=== PATIENT | male | born 1975 | race Caucasian/White ===

== ENCOUNTER → 2023-08-22 14:53 | Outpatient (REF) | payer BC, SELFPAY | LOC: HWEVLT 14:53 | PROVIDERS: ATTENDING PHYSICIAN Radiology Vascular & Interventional Radiology | DX: I83.893 Varicose veins of bilateral lower extremities with other complications (principal) | CPT/HCPCS: 93971 ==

== ENCOUNTER → 2023-10-02 14:33 | Outpatient (REF) | payer BC, SELFPAY | LOC: HWEVLT 14:33 | PROVIDERS: ATTENDING PHYSICIAN Radiology Diagnostic Radiology | DX: I83.892 Varicose veins of left lower extremity with other complications (principal) | CPT/HCPCS: 36478; C1769 ==

== ENCOUNTER → 2023-10-23 13:53 | Outpatient (REF) | payer BC, SELFPAY | LOC: HWEVLT 13:53 | PROVIDERS: ATTENDING PHYSICIAN Radiology Vascular & Interventional Radiology | DX: I83.892 Varicose veins of left lower extremity with other complications (principal) | CPT/HCPCS: 93971 ==

== ENCOUNTER → 2023-10-24 11:07 | Outpatient (REF) | payer BC, SELFPAY ==
--- NOTE | 2023-10-24 11:42 | W.PN.UPDATE ---
Update Note
Progress Note Update
Mr Mason came to day for evaluation of nonhealing access site in the left lower leg. He underwent left GSV ablation on 10/02/23. He states the access site has been oozing some serosanguinous fluid. He has no fever or chills
On exam there is a superficial are of skin desquamation and slow healing wound. There appears to be a varicose vein in the vicinity. There is no drainage noted at this time
A/P Recommend local wound care with triple antibiotic ointment and bandage for 7-10 days. If no improvement, we can perform local foam sclerotherapy to the varicose vein in that area
== END ==
LOC: RADI 11:07
PROVIDERS: ATTENDING PHYSICIAN Radiology Diagnostic Radiology; FAMILY PHYSICIAN Family Medicine
DX: I83.892 Varicose veins of left lower extremity with other complications (principal)

== ENCOUNTER → 2024-12-10 10:04 | Outpatient (REF) | payer SELFPAY | LOC: HWRAD 10:04 | PROVIDERS: ATTENDING PHYSICIAN Family Medicine | DX: E78.00 Pure hypercholesterolemia, unspecified (principal) | CPT/HCPCS: 75571 ==

== ENCOUNTER 2024-12-18 22:35 | Emergency (ER) | payer BC, SELFPAY ==
[2024-12-18 22:39] VITALS: BP 122/86
[2024-12-18 22:55] LABS: Hematocrit 47.3 % (39.0-52.0); Hemoglobin 15.2 g/dL (13.0-18.0); Mean Corp Hgb Conc. 32.1 g/dL (33.0-37.0); Mean Corpuscular Volume 84.8 fL (80.0-94.0); Nucleated Red Blood Cells % 0 % (-); Platelet Count 248 10^3/uL (130-400); Red Cell Dist. Width 13.1 % (11.5-14.5)
[2024-12-18 23:08] LABS: ALT (SGPT) 32 U/L (0-50); AST (SGOT) 25 U/L (17-59); Albumin 4.6 g/dl (3.5-5.0); Alkaline Phosphatase 60 U/L (38-126); Blood Urea Nitrogen 14 mg/dl (9-20); Calcium 9.4 mg/dl (8.4-10.2); Carbon Dioxide 30 mmol/L (22-30); Chloride 103 mmol/L (98-107); Glucose 88 mg/dl (70-99); Potassium 4.6 mmol/L (3.5-5.1); Sodium 140 mmol/L (135-145); Total Protein 7.5 g/dl (6.3-8.2); eGFR > 60.00
--- NOTE | 2024-12-19 00:37 | EDRN ---
Pt says he has been working in the yard for past 2 weeks. Pt noted red raised area on R forearm after dinner. Pt concerned he got bit by a tick - no known tick bite and pt does not recall a moment when he realized he was bitten by something. Pt
adds he thinks he has been bitten by mosquitos. Pt says the area is 'not as puffy' as it was earlier. Pt denies pain in R forearm but notes the area is itchy. No fever/chills.
--- NOTE | 2024-12-19 00:40 | ED.GENMED ---
History of Present Illness
General
Chief Complaint: Skin Problem
Time Seen by Provider: 12/19/24 00:21
History of Present Illness
History of Present Illness:
49-year-old male with history of hyperlipidemia presents to the emergency department for evaluation of an itchy rash to the right forearm. He is concerned for possible Lyme disease. [place] frequently finds ticks on his body but
none recently. No fevers or chills. Did note that last night he was potentially bitten by numerous mosquitoes
Review of Systems
Review of Systems
Allergies reviewed?: Yes
All Other Systems: ROS reviewed and negative except as documented in HPI and ROS
Phy Exam
Physical Exam
Physical Exam:
GEN: Well appearing, NAD, WDWN
HEENT: Oral mucosa moist, no scleral icterus
Cardiac: Regular rate
Lung: No respiratory distress, no tachypnea
MSK: No gross deformity or injuries
Skin: Good color, no pallor or jaundice, 3 to 4 cm oval-shaped erythematous patch to the right volar forearm, no central clearing, no petechiae, blanches, nontender, no induration
Neuro: AO x3, moves all extremities freely
Psych: Calm, cooperative
Course
Orders/Labs/Results
Orders:
Orders
12/18/24 22:45
Complete Blood Count/With Diff Urgent
Comprehensive Metabolic Panel Urgent
Lyme Progressive Urgent
Abnormal Lab Results
12/18/24
22:45
MCHC 32.1 L g/dL
(33.0-37.0)
Absolute Monos (auto) 1.0 H 10^3/uL
(0.1-0.6)
Monocytes % 13.1 H %
(1.7-9.3)
12/18/24 22:45
12/18/24 22:45
Vital Signs
Initial and Last Documented VS:
Initial Vital Signs
Temp Pulse Resp BP Pulse Ox
97.7 F 54 19 122/86 96
12/18/24 22:39 12/18/24 22:39 12/18/24 22:39 12/18/24 22:39 12/18/24 22:39
Last Documented Vital Signs
Temp Pulse Resp BP Pulse Ox
97.7 F 70 14 104/72 98
12/18/24 22:39 12/19/24 00:44 12/19/24 00:44 12/19/24 00:44 12/19/24 00:44
MDM/Problems Addressed
MDM/Problems Addressed:
Rash does not appear to be concerning for Erythema migrans, Lyme titer was sent upon patient request however advised that this will not be indicative of acute Lyme if this were truly an EM rash. Will prescribe doxycycline for 1 week however
recommend the patient hold this and observe the symptoms as this is not likely Lyme
*Pulse Oximetry
SaO2: 96
Patient hypoxic: no
*Critical Care Note
Total Time (30-74mins, 75-104mins- exclusive of procedures): Not Applicable
ED Attending Note
-
Portions of this chart may have been created with voice recognition software.� Occasional wrong word or��sound alike� substitutions may have occurred due to the inherent limitations of voice recognition software.
Discharge Plan
Departure
Patient Disposition: Home (Routine Discharge)
Date of Disposition: 12/19/24
Time of Disposition: 00:41
Patient with high blood pressure during this ER visit?: No
Discharge Problem:
Insect bite
Instructions: Insect bites and stings
Prescriptions:
New
doxycycline monohydrate 100 mg capsule
100 mg PO BID Qty: 14 0RF
Referrals:
Derrick Zhang, [Family Provider, Family Practice]
Activity Restrictions/Additional Instructions:
This rash is NOT consistent with erythema migrans, or early Lyme disease. However if it begins to appear more like a target and persist for at least 1 week please start the antibiotics I have prescribed for you.
Take [id number] antihistamines and ice the area to reduce symptoms. If the red area goes away in the next 1 to 2 days it is even less unlikely this would represent Lyme disease. If your Lyme disease test is positive this indicates chronic
exposure and you may require 2 to 3 weeks of antibiotic therapy
Interventions
Interventions:
*Risk Screen - Suicide Last Done: 12/18/24 22:41
*General Assessment Last Done: 12/19/24 00:35
*Neglect/Abuse Screening Last Done: 12/18/24 22:41
*ED- Fall Risk Assessment Last Done: 12/19/24 00:35
*Nursing Disposition Last Done: 12/19/24 00:47
ED-Skin Assessment Last Done: 12/19/24 00:35
Discharge Date and Time
Discharge Date/Time: 12/19/24 00:47
Print Language: [place]
[2024-12-19 00:44] VITALS: BP 104/72
[2024-12-21 14:50] LABS: Lyme Antibody Screen, EIA Negative (Negative)
== END 2024-12-19 00:47 | disposition home or self-care (01) ==
LOC: EMR 22:35
PROVIDERS: Student in an Organized Health Care Education/Training Program; EMERGENCY PHYSICIAN Emergency Medicine; FAMILY PHYSICIAN Family Medicine
DX: R21 Rash and other nonspecific skin eruption (principal); W57.XXXA Bitten or stung by nonvenomous insect and other nonvenomous arthropods, initial encounter
CPT/HCPCS: 99283; 80053; 85025; 86618

== ENCOUNTER 2025-02-12 06:31 | Day surgery (SDC) | payer BC, SELFPAY | END 2025-02-12 08:55 | disposition home or self-care (01) | LOC: GI 06:31 | PROVIDERS: ATTENDING PHYSICIAN Internal Medicine Gastroenterology | DX: Z12.11 Encounter for screening for malignant neoplasm of colon (principal); K64.8 Other hemorrhoids; K64.4 Residual hemorrhoidal skin tags | CPT/HCPCS: G0121 ==